=== PATIENT | female | born 1990 | race Caucasian/White ===

== ENCOUNTER 2016-07-21 10:09 | Emergency (ER) | END 2016-07-21 12:40 | disposition left against medical advice (07) | DX: O9A.212 Injury, poisoning and certain other consequences of external causes complicating pregnancy, second trimester (principal); S67.21XA Crushing injury of right hand, initial encounter; W23.1XXA Caught, crushed, jammed, or pinched between stationary objects, initial encounter; Y92.9 Unspecified place or not applicable; Z3A.15 15 weeks gestation of pregnancy ==

== ENCOUNTER 2016-12-18 14:00 | Outpatient (CLI) | payer OTHER ==
[~2016-12-18] VITALS: Ht 165.1 cm; Wt 103.0 kg
[2016-12-18 14:12] VITALS: Ht 165.1 cm; Wt 103.0 kg
[2016-12-18] MEDS ORDERED: PREN1TAB31 PO (14:12)
[2016-12-18 14:13] VITALS: BP 116/63; PULSE 111; RESP 18
[2016-12-18 15:14] LABS: BASOPHILS % 0.1 % (0.0-2.0); EOSINOPHILS % 0.4 % (0.0-7.0); HEMATOCRIT 34.7 % (37.0-47.0); HEMOGLOBIN 11.6 g/dl (12.0-16.0); LYMPHOCYTES # 2.6 10^3/ul (0.8-2.9); LYMPHOCYTES % 23.2 % (15.0-51.0); MEAN CORPUSCULAR HEMOGLOBIN 30.4 pg (29.0-33.0); MEAN CORPUSCULAR HGB CONC 33.4 g/dl (32.0-37.0); MEAN CORPUSCULAR VOLUME 91.1 fl (82.0-101.0); MEAN PLATELET VOLUME 9.8 fl (7.4-10.4); MONOCYTE # 0.8 10^3/ul (0.3-0.9); MONOCYTES % 7.1 % (0.0-11.0); NEUTROPHIL # 7.8 10^3/ul (1.6-7.5); NEUTROPHILS % 68.8 % (39.0-77.0); PLATELET COUNT 219 10^3/UL (140-415); RED BLOOD COUNT 3.81 10^6/ul (4.20-5.40); RED CELL DISTRIBUTION WIDTH 13.1 % (11.5-14.5); WHITE BLOOD COUNT 11.3 10^3/ul (4.8-10.8)
[2016-12-18 15:23] LABS: ADD SCAN DIFF NO
[2016-12-18 15:25] LABS: ALBUMIN 3.8 g/dl (3.3-4.9); ALBUMIN/GLOBULIN RATIO 1.46; CALCIUM 8.8 mg/dl (8.4-10.2); CREATININE 0.62 mg/dl (0.44-1.00); POTASSIUM 3.8 mmol/L (3.5-5.1); TOTAL PROTEIN 6.4 g/dl (6.1-8.1); URIC ACID 3.2 mg/dl (3.1-7.9)
[2016-12-18 15:26] LABS: INR 0.98
--- NOTE | 2016-12-18 15:26 | RADRPT ---
PROCEDURE: OB ultrasound for biophysical profile CLINICAL INDICATION: Biophysical profile. . labor TECHNIQUE: Multiple sonographic images of the pelvis were obtained. Transabdominal views are obta ined. COMPARISON: 10/25/2015 FINDINGS: Single intrauterine gestation. Presentation: Cephalic. Placenta: Anterior. No evidence of placental abruption. No evidence of placenta previa. breathing movement = 2/2 tone = 2/2 motion = 2/2 JALYN = 2/2 JALYN = 12.6 cm heart rate: 133 beats per minute IMPRESSION: Single intrauterine gestation. Biophysical profile 01/26 RPTAT: AADD .Matt Dale MD, MD Date Time Electronically viewed and signed by .Matt Dale MD, on 12/18/2016 15:26 .B/
[2016-12-18 15:27] LABS: ADD UMIC YES; UR ASCORBIC ACID NEGATIVE (NEGATIVE); UR BACTERIA FEW /HPF (NONE SEEN); UR BILIRUBIN (Dip) NEGATIVE (NEGATIVE); UR BLOOD (Dip) NEGATIVE (NEGATIVE); UR CLARITY SLIGHTLY CLOUDY (CLEAR); UR COLOR YELLOW (YELLOW); UR GLUCOSE (Dip) 3+ mg/dL (NEGATIVE); UR KETONES (Dip) TRACE mg/dL (NEGATIVE); UR LEUKOCYTE ESTERASE (Dip) 1+ Leu/ul (NEGATIVE); UR MUCUS FEW /HPF (NONE SEEN); UR NITRITE (Dip) NEGATIVE (NEGATIVE); UR RBC 1 /HPF (0-5); UR SPECIFIC GRAVITY (Dip) 1.025 (1.003-1.030); UR SQUAMOUS EPITHELIAL CELL FEW /HPF (FEW); UR TOTAL PROTEIN (Dip) NEGATIVE (NEGATIVE); UR UROBILINOGEN (Dip) NEGATIVE (NEGATIVE)
[2016-12-18 15:27] LABS: PARTIAL THROMBOPLASTIN TIME 24.1 Sec (25.0-35.0)
--- NOTE | 2016-12-18 16:48 | CONS ---
Date/Time of Note Date/Time of Note DATE: 12/18/16 TIME: 16:35 Consultation Date/Type/Reason Admit Date/Time December 18, 2016 OB triage consult Reason for Consultation This patient is a 26 years old 2 para 1 living 1 with EDC of which makes her 36 weeks and 0 days she was referred to triage due to elevated blood pressure of 142/90 in her clinic Her first was normal at term without any evidence of a - induced hypertension or diabetes, On examination she is a well developed well nourished lady who's general vital signs appears to be normal Her blood pressure 116/63, pulse rate 111 respiration 18,, and temperature 98.1 heart rate was around 140 bpm She was having some irregular contractions Pelvic exam was performed and the cervix was less than a fingertip 50% effaced - 2 station and intact membranes. The blood chemical studies which were performed to rule out any possibility of PIH basically for came back normal she had a mild anemia with hemoglobin of 11.6 hematocrit 34.7 platelet count was 219,000 which were within normal limits serum electrolytes and liver function tests were all normal. She has mild glucosuria. On ultrasound study her biophysical profile was 8/8 amniotic fluid index was 12.6 and heart rate 133 bpm Laboratory Tests Test 12/18/16 14:45 12/18/16 14:50 White Blood Count 11.310^3/ul Red Blood Count 3.8110^6/ul Hemoglobin 11.6g/dl Hematocrit 34.7% Mean Corpuscular Volume 91.1fl Mean Corpuscular Hemoglobin 30.4pg Mean Corpuscular Hemoglobin Concent 33.4g/dl Red Cell Distribution Width 13.1% Platelet Count 12797^3/UL Mean Platelet Volume 9.8fl Neutrophils % 68.8% Lymphocytes % 23.2% Monocytes % 7.1% Eosinophils % 0.4% Basophils % 0.1% Nucleated Red Blood Cells % 0.0/100WBC Neutrophils # 7.810^3/ul Lymphocytes # 2.610^3/ul Monocytes # 0.810^3/ul Eosinophils # 0.010^3/ul Basophils # 0.010^3/ul Nucleated Red Blood Cells # 0.010^3/ul Prothrombin Time 13.0Sec Prothrombin Time Ratio 1.0 INR International Normalized Ratio 0.98 Activated Partial Thromboplast Time 24.1Sec Fibrinogen 474.0mg/dl Sodium Level 133mmol/L Potassium Level 3.8mmol/L Chloride Level 105mmol/L Carbon Dioxide Level 21mmol/L Anion Gap 11 Blood Urea Nitrogen 10mg/dl Creatinine 0.62mg/dl Glucose Level 103mg/dl Uric Acid 3.2mg/dl Calcium Level 8.8mg/dl Total Bilirubin 0.0mg/dl Direct Bilirubin 0.00mg/dl Indirect Bilirubin 0.0mg/dl Aspartate Amino Transf (AST/SGOT) 16IU/L Alanine Aminotransferase (ALT/SGPT) 23IU/L Alkaline Phosphatase 140IU/L Total Protein 6.4g/dl Albumin 3.8g/dl Globulin 2.60g/dl Albumin/Globulin Ratio 1.46 Urine Color YELLOW Urine Clarity SLIGHTLY CLOUDY Urine pH 6.0 Urine Specific Roosevelt 1.025 Urine Ketones TRACEmg/dL Urine Nitrite NEGATIVEmg/dL Urine Bilirubin NEGATIVEmg/dL Urine Urobilinogen NEGATIVEmg/dL Urine Leukocyte Esterase 1+Natalya/ul Urine Microscopic RBC 1/HPF Urine Microscopic WBC 5/HPF Urine Squamous Epithelial Cells FEW/HPF Urine Bacteria FEW/HPF Urine Mucus FEW/HPF Urine Hemoglobin NEGATIVEmg/dL Urine Glucose 3+mg/dL Urine Total Protein NEGATIVEmg/dl Constitutional: No chills, No diaphoresis, No disoriented, No febrile, No improved, No no complaints, No other, No poor po, No requiring IVF, No requiring O2 Eyes: No discharge, No no complaints, No other, No pain, No redness, No visual change ENT: No bleeding, No congestion, No discharge, No dysphagia, No no complaints, No other, No pain, No sore throat Respiratory: No cough, No no complaints, No other, No pain, No pleuritic pain, No shortness of breath, No sputum, No wheezing Cardiovascular: No chest pain, No edema, No lightheadedness, No no complaints, No orthopenea, No other, No palpitations, No paroxysmal nocturnal dyspnea Gastrointestinal: No blood, No constipation, No decreased appetite, No diarrhea , No flatus, No nausea, No no complaints, No other, No pain, No passing stool, No vomiting Genitourinary: other (On pelvic examination as I mentioned cervix were basically closed cervix 50% -2), No bleeding, No discharge, No dysuria, No flank pain, No hematuria, No no complaints Musculoskeletal: No back pain, No bone/joint pain, No neck pain, No no complaints, No other, No restricted range of motion, No swelling Skin: No bruising, No erythema, No laceration, No no complaints, No other, No pruritis, No rash, No skin lesions Neurologic: other (Knee-jerk reflex was negative) Endocrine: No dry skin, No no complaints, No other, No polydypsia, No polyuria , No temp intolerance Additional Comments With these positive findings patient was discharged home to be followed in her clinic. If there are any further evidence of -induced hypertension she will return to the triage for further workup . end of dictation thank you Social History Smoking Status: Never smoker Exam/Review of Systems Vital Signs Vitals Vital Signs Date Time Temp Pulse Resp B/P Pulse Ox O2 Delivery O2 Flow Rate FiO2 12/18/16 14:13 98.1 111 18 116/63 Room Air Results Result Diagram: 12/18/16 1445 12/18/16 1445 Results 24 hrs Laboratory Tests Test 12/18/16 14:45 12/18/16 14:50 White Blood Count 11.3 H Red Blood Count 3.81 L Hemoglobin 11.6 L Hematocrit 34.7 L Mean Corpuscular Volume 91.1 Mean Corpuscular Hemoglobin 30.4 Mean Corpuscular Hemoglobin Concent 33.4 Red Cell Distribution Width 13.1 Platelet Count 219 Mean Platelet Volume 9.8 Neutrophils % 68.8 Lymphocytes % 23.2 Monocytes % 7.1 Eosinophils % 0.4 Basophils % 0.1 Nucleated Red Blood Cells % 0.0 Neutrophils # 7.8 H Lymphocytes # 2.6 Monocytes # 0.8 Eosinophils # 0.0 Basophils # 0.0 Nucleated Red Blood Cells # 0.0 Prothrombin Time 13.0 Prothrombin Time Ratio 1.0 INR International Normalized Ratio 0.98 Activated Partial Thromboplast Time 24.1 L Fibrinogen 474.0 H Sodium Level 133 L Potassium Level 3.8 Chloride Level 105 Carbon Dioxide Level 21 Anion Gap 11 Blood Urea Nitrogen 10 Creatinine 0.62 Glucose Level 103 Uric Acid 3.2 Calcium Level 8.8 Total Bilirubin 0.0 L Direct Bilirubin 0.00 Indirect Bilirubin 0.0 Aspartate Amino Transf (AST/SGOT) 16 Alanine Aminotransferase (ALT/SGPT) 23 Alkaline Phosphatase 140 H Total Protein 6.4 Albumin 3.8 Globulin 2.60 Albumin/Globulin Ratio 1.46 Urine Color YELLOW Urine Clarity SLIGHTLY CLOUDY A Urine pH 6.0 Urine Specific Roosevelt 1.025 Urine Ketones TRACE A Urine Nitrite NEGATIVE Urine Bilirubin NEGATIVE Urine Urobilinogen NEGATIVE Urine Leukocyte Esterase 1+ H Urine Microscopic RBC 1 Urine Microscopic WBC 5 Urine Squamous Epithelial Cells FEW Urine Bacteria FEW A Urine Mucus FEW A Urine Hemoglobin NEGATIVE Urine Glucose 3+ H Urine Total Protein NEGATIVE ANSELMO REED MD Dec 18, 2016 16:46
== END 2016-12-18 16:30 | disposition home or self-care (01) ==
LOC: OBT 14:00 → L-D 14:03 → OBT 16:30
PROVIDERS: ATTEND Obstetrics & Gynecology
DX: O62.9 Abnormality of forces of labor, unspecified (principal); Z3A.36 36 weeks gestation of pregnancy
CPT/HCPCS: 36415; 76818; 80053; 81001; 84560; 85025; 85384; 85610; 85730; Z7500; G0463

== ENCOUNTER 2017-08-26 11:00 | Inpatient (IN) | END 2017-08-28 14:30 | disposition home or self-care (01) | DRG 446 ==